=== PATIENT | male | born 1955 | race American Indian/Alaskan Native ===

== ENCOUNTER 2018-11-29 12:39 | Outpatient (CLI) | payer OTHER ==
--- NOTE | 2018-11-30 12:55 | Mammography Report ---
Bilateral diagnostic mammogram followed by sonogram of right and left breast: No previous studies available. CAD study utilized. History: Pain, mastodynia. Findings: Heterogeneous breast parenchyma bilaterally. No distinct mass or microcalcification. Benign axillary nodes. No mass in the palpable region subareolar area left breast. Sonographic examination reveals uniformly faintly echogenic mass subareolar area left breast measuring 3.9 x 1.3 cm. No distinct wall is identified. Impression: Findings probably suggestive of changes secondary to gynecomastia or a benign mass/lesion. No significant vascularity noted. Probably benign. Six-month followup recommended. BI-RADS CATEGORY: 3 = Probably benign ACR BI-RADS MAMMOGRAPHIC CODES: 0 = Needs additional imaging evaluation; 1 = Negative; 2 = Benign; 3 = Probably benign; 4 = Suspicious; 5 = Malignant; 6 = Known biopsy-proven malignancy COMMENT: 1. Dense breast tissue, i.e., adenosis, fibrocystic changes, etc., may obscure an underlying neoplasm. 2. Approximately 10% of cancers are not detected with mammography. 3. A negative mammography report should not delay biopsy if a clinically suspicious mass is present. COMMENT: Patient follow-up letters are generated in [employer].
== END 2018-11-29 12:40 | disposition home or self-care (01) ==
LOC: MAMMO 12:39
PROVIDERS: ATTEND Internal Medicine
DX: N64.4 Mastodynia (principal)
CPT/HCPCS: 77066

== ENCOUNTER 2018-11-30 11:18 | Outpatient (CLI) | payer OTHER ==
--- NOTE | 2018-11-30 12:55 | Ultrasound Report ---
Bilateral diagnostic mammogram followed by sonogram of right and left breast: No previous studies available. CAD study utilized. History: Pain, mastodynia. Findings: Heterogeneous breast parenchyma bilaterally. No distinct mass or microcalcification. Benign axillary nodes. No mass in the palpable region subareolar area left breast. Sonographic examination reveals uniformly faintly echogenic mass subareolar area left breast measuring 3.9 x 1.3 cm. No distinct wall is identified. Impression: Findings probably suggestive of changes secondary to gynecomastia or a benign mass/lesion. No significant vascularity noted. Probably benign. Six-month followup recommended. BI-RADS CATEGORY: 3 = Probably benign ACR BI-RADS MAMMOGRAPHIC CODES: 0 = Needs additional imaging evaluation; 1 = Negative; 2 = Benign; 3 = Probably benign; 4 = Suspicious; 5 = Malignant; 6 = Known biopsy-proven malignancy COMMENT: 1. Dense breast tissue, i.e., adenosis, fibrocystic changes, etc., may obscure an underlying neoplasm. 2. Approximately 10% of cancers are not detected with mammography. 3. A negative mammography report should not delay biopsy if a clinically suspicious mass is present. COMMENT: Patient follow-up letters are generated in [employer].
== END 2018-11-30 11:19 | disposition home or self-care (01) ==
LOC: US 11:18
PROVIDERS: ATTEND Internal Medicine
DX: N64.4 Mastodynia (principal)